=== PATIENT | female | born 1970 | race Caucasian/White ===

== ENCOUNTER 2021-08-03 07:17 | Outpatient (CLI) | payer OTHER, SELFPAY ==
--- NOTE | 2021-08-03 08:15 | XRR_ITS ---
PROCEDURE INFORMATION: Exam: XR Abdomen Exam date and time: 08/03/2021 8:15 AM Age: 50 years old Clinical indication: Condition or disease; Kidney or ureter condition; Calculus (stone) in kidney; Prior surgery; Surgery type: ; Additional info: Renal stone, f/u bilateral kidney stones TECHNIQUE: Imaging protocol: XR of the abdomen. Views: Frontal supine view of the abdomen. 1 View. COMPARISON: CR XR KUB [id number] 03/26/2019 7:25 AM FINDINGS: Gastrointestinal tract: Normal. No bowel dilation. Bones/joints: Unremarkable. Other findings: No visible calculi in the abdomen or pelvis. XR/XR KUB [id number] IMPRESSION: 1. No acute findings.
== END 2021-08-03 07:18 | disposition home or self-care (01) ==
LOC: RAD 07:22
PROVIDERS: PCP Family Medicine; Visit Provider Urology
DX: N20.0 Calculus of kidney (principal)
CPT/HCPCS: 74018; 81003

== ENCOUNTER 2022-02-02 07:01 | Outpatient (CLI) | payer OTHER, SELFPAY ==
--- NOTE | 2022-02-02 07:00 | XR_ITS ---
WS: [email or web address] KUB, AP view, 02/02/2022 Clinical Data: bilateral renal stones Comparison: KUB, 08/03/2021. Findings: No abnormal intraabdominal masses are seen. There is no dilatated small bowel or evidence of obstruct ion. There is a triangular 0.9 cm calcification to the right of the L2-L3 disc level which could be renal or ureteral. Fecal material and colon gas obscures detail over both kidneys. XR/XR KUB [id number] Impression: Possible right ureteral or renal calculus.
== END 2022-02-02 07:02 | disposition home or self-care (01) ==
LOC: RAD 07:02
PROVIDERS: PCP Family Medicine; Visit Provider Urology
DX: N20.0 Calculus of kidney (principal); N39.0 Urinary tract infection, site not specified
CPT/HCPCS: 74018; 81003

== ENCOUNTER → 2023-01-04 08:08 | Outpatient (BNVA) | payer OTHER, SELFPAY | PROVIDERS: PCP Family Medicine; Visit Provider Family Medicine | DX: E03.9 Hypothyroidism, unspecified (principal); I10 Essential (primary) hypertension; E16.2 Hypoglycemia, unspecified; N39.0 Urinary tract infection, site not specified; F41.8 Other specified anxiety disorders | CPT/HCPCS: 80053; 80061; 83036; 84443 ==

== ENCOUNTER 2023-02-03 07:11 | Outpatient (CLI) | payer OTHER, SELFPAY ==
--- NOTE | 2023-02-03 07:19 | XR_ITS ---
WS: [email or web address] EXAMINATION: XR KUB [id number] REASON FOR EXAM: Bilateral Renal Stone COMPARISON: 02/02/2022 ORDER DATE: 02/03/2023 7:20 AM FINDINGS: No abnormal intraabdominal masses are seen. There is no dilatated small bowel or evidence of obstruction. There is a triangular 0.9 cm calcification on the right unchanged which could be renal or ureteral. Fecal material and colon gas obscures detail over both kidneys. XR/XR KUB [id number] IMPRESSION: Unchanged right renal pelvis or ureteral calculus.
== END 2023-02-03 07:12 | disposition home or self-care (01) ==
PROVIDERS: PCP Family Medicine; Visit Provider Urology
DX: N20.0 Calculus of kidney (principal)
CPT/HCPCS: 74018; 81003

== ENCOUNTER 2023-02-16 14:52 | Outpatient (CLI) | payer OTHER, SELFPAY ==
--- NOTE | 2023-02-16 15:00 | CT_ITS ---
WS: [id number] CT ABDOMEN AND PELVIS NONCONTRAST HISTORY: STONE TECHNIQUE: Imaging performed through the abdomen and pelvis. Coronal and sagittal reformats are submi tted. All CT scans at [facility] use at least one of these dose optimization techniques: auto mated exposure control; mA and/or kV adjustment per patient size (includes targeted exams where dose is matched to clinical indication); or iterative reconstruction. DLP: 1184.73 mGy.cm COMPARISON: 05/30/2012 Lower thorax: Lung bases are clear. Visualized heart is normal. No hiatal hernia. Liver: Normal liver with moderate hepatic steatosis. Gallbladder: Mildly contracted. Pancreas: Normal size and attenuation. Normal pancreatic duct. No pancreatitis or mass. Spleen: Normal. Adrenal glands: Normal. No mass. Right kidney: Mild perinephric stranding. Triangular-shaped 9.3 mm calcification at the UP junction. This calcification is causing a mild dilatation of the renal pelvis. Distal to this calcification the ureter is normal. There is an additional 2 mm nonobstructing calcification in the renal pelvis. Too small to characterize 5 mm mid renal nodule. Left kidney: Mild perinephric stranding. Nonobstructing renal calcifications. Aorta: Normal abdominal aorta, no aneurysm or atherosclerosis. No free fluid, intraperitoneal air or significant lymphadenopathy. GI tract: Nondistended stomach. No small bowel obstruction. Normal appendix. Numerous scattered diver ticula throughout the entire colon. No submucosal edema. No acute diverticulitis. Abdominal wall: Small umbilical hernia contains fat only. Pelvis: Urinary bladder is not distended. Normal size atrophic uterus for age. No pelvic mass or flui d. Osseous structures: Unremarkable. CT/CT kidney stone [id number] IMPRESSION: 1. Irregular shaped 9.3 mm calcification at the RIGHT UP junction. Calcificati on is causing a very mild dilatation of the RIGHT renal pelvis. 2. Additional bilateral nonobstructing renal calcifications. 3. Normal appendix. 4. Moderate hepatic steatosis.
== END 2023-02-16 14:53 | disposition home or self-care (01) ==
LOC: RAD 14:54
PROVIDERS: PCP Family Medicine; Visit Provider Urology
DX: N20.2 Calculus of kidney with calculus of ureter (principal); K76.0 Fatty (change of) liver, not elsewhere classified
CPT/HCPCS: 74176; 81003

== ENCOUNTER 2024-03-23 08:59 | Outpatient (CLI) | payer OTHER, SELFPAY ==
--- NOTE | 2024-03-23 09:05 | XR_ITS ---
WS: [email or web address] KUB, AP view, 03/23/2024 Clinical Data: KIDNEY STONE Comparison: KUB, 02/03/2023r Findings: The triangular calcification at the right UPJ junction now measures 1.2 cm. No other renal calcificat ions are seen. No abnormal intraabdominal masses are seen. There is no dilatated small bowel or evidence of obstruc tion. XR/XR KUB [id number] Impression: Slight increase in size of probable right UPJ calcification.
== END 2024-03-23 09:00 | disposition home or self-care (01) ==
LOC: RAD 09:01
PROVIDERS: PCP Family Medicine; Visit Provider Urology
DX: N20.0 Calculus of kidney (principal)
CPT/HCPCS: 74018